=== PATIENT | female | born 1975 | race Caucasian/White ===

== ENCOUNTER 2016-10-23 16:37 | Observation (INO) | payer SELFPAY ==
[2016-10-23] MEDS ORDERED: diazePAM 5 MG TAB PO ONE (17:00)
[2016-10-23] MEDS ORDERED: KETOROLAC TROMETHAMINE INJ 60 MG/2 ML VIAL IM ONE (17:00)
--- NOTE | 2016-10-23 17:03 | ED.PDOC ---
History of Present Illness - General Chief Complaint: Back Pain or Injury Stated Complaint: left sided low back pain Time Seen by Provider: 10/23/16 16:40 Source: patient, family Exam Limitations: no limitations - History of Present Illness Initial Comments: the patient is a 41-year-old female presenting to the emergency room in pain and crying. She reports pain in her left leg that extends from her left buttock by the sacroiliac joint down around to her anterior chandler. She reports that she had a bout of this not as bad 2 weeks ago. She took some Aleve at that time as well as some topical medications and it went away. She was simply getting out of bed when it started this morning. Several years ago she had a bout of sciatica as well. She reports no recent injuries. I see no bruising. She has no sensory changes or weakness of that leg. This seems to be primarily radicular type pain Timing/Duration: 4-6 hours Severity: moderate Improving Factors: immobilization Worsening Factors: movement, other - palpation Allergies/Adverse Reactions: Allergies NO KNOWN ALLERGY Allergy (Verified 09/17/13 11:44) Home Medications: Ambulatory Orders NK [NK] 10/23/16 Review of Systems - Review of Systems Constitutional: States: no symptoms reported EENTM: States: no symptoms reported Respiratory: States: no symptoms reported Cardiology: States: no symptoms reported Gastrointestinal/Abdominal: States: no symptoms reported Genitourinary: States: no symptoms reported Musculoskeletal: States: see HPI Skin: States: no symptoms reported Neurological: States: see HPI All other Systems: No Change from Baseline Past Medical History (General) - Vaccination History Hx Influenza Vaccination: No - Social History Hx Tobacco Use: Yes Family Medical History - Family History Mother Family History: Unknown Living Status: Unknown Physical Exam - Physical Exam General Appearance: Alert, Obvious distress Eye Exam: bilateral normal Ears, Nose, Throat: normal ENT inspection - poor dentition Neck: non-tender, full range of motion, supple, normal inspection Respiratory: chest non-tender, lungs clear, normal breath sounds, no respiratory distress, no accessory muscle use Cardiovascular/Chest: normal peripheral pulses, regular rate, rhythm, no edema Peripheral Pulses: radial,right: 2+, radial,left: 2+ Gastrointestinal/Abdominal: non tender, soft Extremity: normal range of motion, no pedal edema, no calf tenderness, normal capillary refill, other - see history of present illness. No palpable masses or gross deformity is present. No weakness. Neurologic: alert, oriented x 3 Skin Exam: normal color Comments: Vital Signs - 24 hr 10/23/16 16:44 Temperature 96.8 F L Pulse Rate [ 124 H Left Brachial] Respiratory 28 H Rate Blood Pressure 126/86 [Left Arm] O2 Sat by Pulse 98 Oximetry Progress - Progress Progress: 10/23/16 19:46 the patient is a 41-year-old female with sciatica down the right lower extremity stopping at approximately the level of the knee. It is unclear if this is coming from her lumbar spine from piriformis syndrome. I did inject her with a local anesthetic over the piriformis muscle. She does have significant spasm in the proximal musculature of the right thigh. This has been going on for a while. She is getting some relief from the medications given here but will need more extensive medical management. The patient will be admitted for further pain control. Pain is quite severe. Urinalysis has yet to be collected. The patient did receive a liter of IV fluids. She is neurovascularly preserved distally. Admit for pain control. - Results/Orders Results/Orders: Laboratory Tests 10/23/16 18:55 WBC 11.8 H RBC 5.16 Hgb 17.6 H Hct 51.8 H MCV 100.3 H MCH 34.1 H MCHC 34.0 RDW 12.5 Plt Count 228 MPV 7.6 Absolute Neuts (auto) 7.90 H Absolute Lymphs (auto) 2.60 Absolute Monos (auto) 1.20 H Absolute Eos (auto) 0.00 Absolute Basos (auto) 0.10 Neutrophils % 67.1 Lymphocytes % 21.9 Monocytes % 9.9 H Eosinophils % 0.4 L Basophils % 0.7 D-Dimer, Quantitative < 230 Sodium 134 L Potassium 3.7 Chloride 99 L Carbon Dioxide 25 Anion Gap 13.7 BUN 6 L Creatinine 0.61 BUN/Creatinine Ratio 9.8 L Random Glucose 96 Serum Osmolality 265.7 L Lactic Acid 1.2 Calcium 9.8 Magnesium 1.8 Total Bilirubin 0.3 AST 26 ALT 20 Alkaline Phosphatase 62 Creatine Kinase 125 CK-MB (CK-2) 2.1 CK-MB (CK-2) % Not Reportable Troponin I < 0.02 Serum Total Protein 8.5 H Albumin 4.8 Globulin 3.7 H Albumin/Globulin Ratio 1.3 x-rays of the pelvis, lumbar spine and femur appear grossly normal. after risk-benefit was obtained, injection of bupivacaine 10 cc was distributed over the piriformis muscle on the right. Assessment blood loss less than 1 cc. Area was cleaned with alcohol swab prior. She tolerated the injections well. She did get some relief from this. Departure - Departure Clinical Impression: Sciatica Qualifiers: Laterality: right Qualifier Code: (M54.31) Sciatica, right side Disposition: Admit Patient Home Medications: Ambulatory Orders NK [NK] 10/23/16 Decision To Admit - Decistion To Admit Decision to Admit Reason: Medical Nature Decision to Admit Date: 10/23/16 Decision to Admit Time: 19:49
--- NOTE | 2016-10-23 17:41 | RAD ---
EXAM DESCRIPTION: XR LUMBAR SPINE 2-3 VIEWS CLINICAL HISTORY: 41-year-old female with right lower extremity sciatica. COMPARISON: None. TECHNIQUE: Five views of the lumbar spine were obtained in AP, lateral, bilateral oblique and spot projections. FINDINGS: Alignment of the lumbar spine is within normal limits. There is no subluxation or fracture deformity. Morphology of the vertebral bodies and intervertebral disc spaces is compatible with moderate multilevel degenerative change with loss of disc height present throughout the lumbar spine particularly at the L3-4, L4-5 and L5-S1 levels with endplate sclerosis and anterior vertebral body osteophytes. Degenerative facet changes of suspected. The facets are normal in alignment bilaterally. The remainder of the visualized bones are within normal limits. Tubal closure device is noted. IMPRESSION: Degenerative changes, particularly of the lower lumbar spine with straightening of the lumbar spine. If the patient's symptoms persist, more sensitive assessment with MRI may be considered. Electronically signed by: Tabitha Juan MD 10/23/2016 17:38
--- NOTE | 2016-10-23 17:41 | RAD ---
EXAM DESCRIPTION: XR PELVIS 1-2 VIEWS CLINICAL HISTORY: 41-year-old female with right lower extremity sciatica. COMPARISON: None. TECHNIQUE: Single frontal view of the pelvis was obtained. FINDINGS: There is no fracture or dislocation. The joint spaces are preserved. No soft tissue abnormalities are seen. Tubal closure devices are noted. Degenerative change of the lower lumbar spine present. The right hip is internally rotated limiting assessment of the femoral neck. Pelvic phleboliths present. IMPRESSION: No acute radiographic abnormality. Electronically signed by: Tabitha Juan MD 10/23/2016 17:39
[2016-10-23] MEDS ORDERED: predniSONE 20 MG TAB PO ONE (17:43)
[2016-10-23] MEDS ORDERED: BUPIVACAINE 0.5% 30 ML VIAL INJ ONE (18:17)
[2016-10-23] MEDS ORDERED: HYDROmorphone HCL INJ 2 MG/ML VIAL IM SCH (18:30)
[2016-10-23] MEDS ORDERED: LACTATED RINGERS 1,000 ML IVS ONE (18:44)
--- NOTE | 2016-10-23 19:24 | RAD ---
EXAM DESCRIPTION: XR FEMUR 2 VIEWS CLINICAL HISTORY: 41-year-old female with proximal thigh pain. COMPARISON: None. TECHNIQUE: Four views of the right femur were obtained in AP, lateral and oblique projections. FINDINGS: There is no fracture or dislocation. The joint spaces are preserved. No soft tissue abnormalities are seen. Partially visualized postoperative changes of ACL repair. IMPRESSION: No acute radiographic abnormality. Electronically signed by: Tabitha Juan MD 10/23/2016 19:22
[2016-10-23] MEDS ORDERED: HYDROmorphone HCL INJ 2 MG/ML VIAL IV SCH (20:00)
--- NOTE | 2016-10-23 20:18 | HP ---
SUPERVISING PHYSICIAN: Zach Holguin MD CHIEF COMPLAINT: Lower back pain that radiates to the right chandler. HISTORY OF PRESENT ILLNESS: This is a 41 year-old female patient who was in her normal state of health, she got out of bed this morning and had excruciating pain in her lower back that radiated down to her right chandler. She tried stretching, she tried ibuprofen, the pain worsened so badly she came to the Emergency Room. In the Emergency Room she was given oral prednisone as well as some Dilaudid. She was also given some Toradol and Valium. She did not have any relief. 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 Her right hip x-ray shows no acute radiographic abnormality. Her pelvis x-ray showed no acute radiographic abnormality and her lumbar x-ray shows moderate multilevel degenerative changes with loss of disk height present through the lumbar spine, particularly at the L3 to 4, L4 to 5 and L5 to S1 levels with endplate sclerosis and anterior vertebral body osteophytes. She also has straightening of the lumbar spine. Her laboratory showed a WBC of 11.8, hemoglobin 17.6, hematocrit 51.8. Her sodium is 134, chloride is 99, serum osmolality is 265.7. Urine shows a small amount of leukocyte esterase and 5 to 10 urine WBCs. Her pain was unable to be controlled in the Emergency Room and I was called for an admission to the hospital. PAST MEDICAL HISTORY: None. PAST SURGICAL HISTORY: 1. Three surgeries to the right knee. CURRENT MEDICATIONS: None ALLERGIES: NO KNOWN DRUG ALLERGIES. FAMILY HISTORY: Noncontributory. SOCIAL HISTORY: She smokes about a pack of cigarettes per day. She drinks 1 to 6 beers daily. She denies any illicit drug use. 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 She is . CODE STATUS: She is a full code. REVIEW OF SYSTEMS: GENERAL: She complains of fatigue due to the back pain but denies fever or weight changes. HEENT: Denies sinus symptoms, ear pain, vision problems or sore throat. RESPIRATORY: Denies coughing, wheezing or shortness of breath. CARDIAC: Denies chest pain, palpitations or tachycardia. ABDOMEN: Complains of some nausea and vomiting due to the pain but denies constipation, diarrhea, or abdominal pain. NEUROLOGICAL: Denies headaches or dizziness. She does have radiculopathy pain down her right leg that goes to the middle of her right lower leg. SKIN: She denies lesions or rashes. PHYSICAL EXAMINATION: VITAL SIGNS: She is afebrile. Pulse rate 124, blood pressure 126/86, respiratory rate 28, 02 saturation 98% on room air. GENERAL: This is a 41 year-old female patient who Iooks to be in severe pain. HEENT: Normocephalic and atraumatic. Pupils are equal and reactive. NECK: Supple without mass. No jugular venous distention. CHEST: Clear to auscultation bilaterally. There is equal rise and fall of the chest with inspiration and expiration. CARDIOVASCULAR: Regular rate and rhythm, although at times it is tachycardic. ABDOMEN: Soft, nondistended, non-tender. Bowel sounds are positive. EXTREMITIES: No cyanosis, clubbing, or edema. NEUROLOGIC: She does have tenderness across her right lower back that extends on the lateral hip down to the proximal portion of her thigh that extends down to the mid chandler area of her lower leg. She is awake, alert, and oriented. SKIN: There are no lesions or rashes. Labs and films are as per the history of present illness. ASSESSMENT: 1. Intractable lumbar radiculopathy pain, right-sided. 2. Urinary tract infection. 3. Moderate degenerative changes in the lumbar spine, especially at L3 to 4, L4 to 5, L5 to S1. 4. Tobacco abuse. 5. Daily ETOH of one to six drinks per day. PLAN: We will admit the patient to the hospital as an observation. I will give her one large dose of IV dose of Solu-Medrol and will start her on p.o. prednisone tomorrow. I will also give her some Lyrica to see if that will alleviate some of the radiculopathy. I have given her Zofran for her nausea and she may need some p.r.n. benzodiazepine as well as some pain medications. She will need an MRI at some point on her lumbar spine. Dr. Holguin is the collaborating physician and available for consultation. #[id number] [facility]
[2016-10-23] MEDS ORDERED: PREGABALIN 75 MG CAP PO ONE (21:20)
[2016-10-23] MEDS ORDERED: KCL 20MEQ/D5NS 1,000 ML IVS PRN (21:27)
[2016-10-23] MEDS ORDERED: IV SET AND CAP CHANGE INJ INJ SCH (21:30)
[2016-10-23] MEDS: ONDANSETRON INJ 4 MG/2 ML VIAL IV PRN (21:32)
[2016-10-23] MEDS: SODIUM CHLORIDE 0.9% (FLUSH) 10 ML SYG IV PRN ×3 (21:33→22:53)
[2016-10-23] MEDS ORDERED: methylPREDNISolone SODIUM SUC 125 MG/2 ML VIAL IV ONE (22:27)
[2016-10-23] MEDS ORDERED: diazePAM 5 MG TAB PO PRN (22:29)
[2016-10-23] MEDS: PREGABALIN 100 MG CAP PO SCH (22:53)
--- NOTE | 2016-10-24 00:13 | PCM.CORE ---
Physician DVT/VTE - Prophylaxis Currently: Patient already on anticoagulation therapy - Nurse DVT Assessment & Total Each Risk Factor Represents 1 Point: Age 41-60 DVT Assessment Score: 1
[2016-10-24] MEDS ORDERED: cefTRIAXone SODIUM 1 GM VIAL ONE ×2 (00:29→08:28)
[2016-10-24] MEDS ORDERED: SODIUM CHL 0.9% 50ML MIN-BAG+ 50 ML IVPB ONE ×2 (00:29→08:28)
[2016-10-24] MEDS ORDERED: PANTOPRAZOLE SODIUM IV 40 MG VIAL IV SCH ×2 (00:30→21:00)
[2016-10-24] MEDS ORDERED: ENOXAPARIN SODIUM 40 MG/0.4 ML SYG SUBCU SCH ×2 (00:30→21:00)
[2016-10-24] MEDS: cefTRIAXone SODIUM 1 GM in SODIUM CHL 0.9% 50ML MIN-BAG+ 50 ML IVPB SCH ×2 (00:34→10:27)
[2016-10-24] MEDS: SODIUM CHLORIDE 0.9% (FLUSH) 10 ML SYG IV PRN ×3 (00:36→05:28)
[2016-10-24] MEDS: HYDROmorphone HCL INJ 2 MG/ML VIAL IV PRN ×3 (04:17→13:55)
[2016-10-24] MEDS: ONDANSETRON INJ 4 MG/2 ML VIAL IV PRN (05:27)
[2016-10-24 08:35] VITALS: O2SAT 93
[2016-10-24] MEDS: PREGABALIN 100 MG CAP PO SCH ×2 (08:58→14:36)
[2016-10-24] MEDS ORDERED: SODIUM CHLORIDE 0.9% (FLUSH) 10 ML SYG IV SCH (09:00)
[2016-10-24] MEDS ORDERED: predniSONE 20 MG TAB PO SCH (09:00)
[2016-10-24] MEDS: METHOCARBAMOL 750 MG TAB PO SCH ×2 (10:26→14:36)
[2016-10-24 10:38] VITALS: BP 112/76; TEMP 98.3
[2016-10-24] MEDS ORDERED: KETOROLAC TROMETHAMINE INJ 30 MG/ML VIAL IV SCH (11:30)
[2016-10-24] MEDS ORDERED: KETOROLAC TROMETHAMINE INJ 30 MG/ML VIAL ONE (11:43)
--- NOTE | 2016-10-24 12:45 | PN ---
DATE: 10/24/16 SUBJECTIVE: The patient is still in intermittent severe pain though the patient states the pain is several degrees better than it was last evening. Still on parenteral analgesics which will be switched over to a more oral choice. Will try continued antiinflammatory and add muscle relaxants to see if it will assist. OBJECTIVE: Afebrile, pulse 103, blood pressure 112/76, pulse oximetry 93% on room air in a lady that is still smoking. LUNGS: Have some diminished breath sounds and occasional expiratory slowing evident. No significant coughs. No rales. HEART: Tones are somewhat rapid though somewhat distant. ABDOMEN: Soft. Discomfort in the right lower extremity extends from the lateral hip region and the region superior to the bursa around to the right medial thigh and then down to the anterior shins. It does not extend to the feet. She feels better when she is flexed and will encourage her now to try some gentle extension exercises and walking, and sitting in the lounge chair as the day progresses. Awaiting PT evaluation with low back exercises to be explained to her. LABORATORY: White count 11,800, hemoglobin 17.6. Chemistries show sodium 134, sugar is 96, BUN 6, magnesium and calcium normal. Cardiac enzymes normal. Albumin 4.8. Urinalysis shows 5 to 10 WBCs but urine culture is negative. Will stop the Rocephin at this time. ASSESSMENT: 1. Acute low back pain with right lower extremity referral of pain probably secondary to acute ligamental strain with localized hemorrhage, yet must also continue to evaluate for a possible radicular component with a nerve compression on the right side. 2. Chronic tobacco abuse. 3. Chronic ethanol use. PLAN: Will increase activity with walking and sitting in the chair to assist with some extension exercises. Try Willet instead of the IV medicines, a trial of Toradol overnight and continue with Robaxin muscle relaxation on a regular basis. Anticipate discharge hopefully tomorrow with improved state with close followup shortly thereafter in [facility]. Consider an MRI as an outpatient if not improving with conservative treatment. #[id number] [facility]
[2016-10-24] MEDS ORDERED: HYDROcodone 7.5MG/APAP 325MG 1 EA TAB PO PRN (14:53)
--- NOTE | 2016-10-24 17:28 | DS ---
DISCHARGE DIAGNOSIS: 1. Acute low back pain with right lower extremity referral of the pain probably secondary to an acute ligamental strain with localized hemorrhage yet must also continue to be evaluated for a possible acute radicular pain from nerve root compression on the right side of the low back. 2. Chronic tobacco abuse, encouraged to stop. 3. Chronic ethanol use. 4. Chronic recurrent right shoulder anterior dislocation. HISTORY OF PRESENT ILLNESS: This 41 year-old white female was admitted to the hospital from the Emergency Room because of severe intractable pain in her low back. This pain had a referral from the lateral aspect of the right hip down the medial thigh towards the anterior chandler on the right leg only. Onset was while she was twisting in her bed to get out of the bed and the onset of the pain was very sudden. She is unable to walk and tends to hold her back in a flexion position to assist with some of the pain. Nausea has been present. Radiographic studies failed to show acute fracture or dislocation but she does have a loss of the lumbar curve in the lumbar spine suggesting significant muscle spasm. The patient was placed in the hospital for overnight observation to assist with the management of the severe pain that she presents with. LABORATORY: White count 11,800, hemoglobin 17.6. D-dimer is under 230, ESR of zero. Electrolytes showed potassium 3.7, CO2 is 25, BUN 6, creatinine 0.61, sugar 96, osmolality 265, calcium 9.8. Liver enzymes normal. Troponin zero. Albumin 4.8. Urinalysis does show slight pyuria and 1+ bacteriuria present yet no growth after 24 hours on the culture. X-rays of the femur, pelvis and lumbar spine failed to show any acute bony abnormalities other than muscle spasm with loss of lordotic curve of the lumbar spine. Further investigation as symptoms mature. HOSPITAL COURSE: During the hospital stay, the patient's pain was quite severe until later in the afternoon at the time of discharge. She was feeling much improved possibly assisted by the Toradol medication. Before she was able to be discharged, she was reaching with her right arm back behind her body to throw a blanket off of her legs when her right shoulder anteriorly dislocated which it has done many times in the past. After 1 mg of Dilaudid IV, the shoulder was reintroduced into the joint space with the patient taking an active part in helping to walk it up over the lip of the acromion and also noticing some evidence of possible torn tissue somewhat sometimes preventing it from fully going into the joint space provided for the humeral head. The patient tolerated the procedure well and she was placed in an arm sling after reduction of the shoulder was completed. The patient was ready for continued outpatient therapy and followup after discharge at the time of discharge. PLAN: The patient will have close followup with [facility] within the next 2 to 3 days. Request a referral to an orthopedist for assistance on the chronically dislocating right shoulder. Also to continue with instructions on exercises to help the low back pains. 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 Try the pain and muscle medication to help relieve the pains, including Naprosyn 3 times a day. Apply hot and cold compresses to painful areas. Use the sling to the right arm to help the shoulder to heal from its recent dislocation. Return if not improving. #[id number] [facility]
[2016-10-25] MEDS ORDERED: OMEPRAZOLE CAP 20 MG CAP PO SCH (06:30)
== END 2016-10-24 16:45 | disposition home or self-care (01) ==
LOC: ER 16:37 → MS 20:17
PROVIDERS: ADMIT Nurse Practitioner Acute Care; ATTEND Emergency Medicine
DX: M54.5 Low back pain (principal); N39.0 Urinary tract infection, site not specified; M25.551 Pain in right hip; M79.604 Pain in right leg; F17.210 Nicotine dependence, cigarettes, uncomplicated; F10.20 Alcohol dependence, uncomplicated; M24.411 Recurrent dislocation, right shoulder; M47.816 Spondylosis without myelopathy or radiculopathy, lumbar region; X50.0XXA Overexertion from strenuous movement or load, initial encounter; Y93.89 Activity, other specified; Y92.230 Patient room in hospital as the place of occurrence of the external cause
CPT/HCPCS: 23650; 36415 ×3; 72100; 72170; 73551; 80053; 81001; 81025; 82550; 82553; 83605; 83735; 84484; 85025; 85379; 85651; 87086; 94760; 96361 ×3; 96365; 96366; 96372 ×2; 96375 ×2; 96376; 99284; 99406; G0378; J0696 ×2; J1170 ×4; J1650; J1885 ×2; J2405 ×2; J2930; J7050 ×2; J7120; J7512 ×2